=== PATIENT | female | born 1965 | race Caucasian/White ===

== ENCOUNTER 2024-08-16 11:19 | Emergency (ER) | payer OTHER, SELFPAY ==
[2024-08-16 11:20] VITALS: BP 140/107
--- NOTE | 2024-08-16 12:03 | ED.GENMED ---
History of Present Illness
<Savannah Hathc PA-C - Last Filed: 08/16/24 21:35>
General
Chief Complaint: Headache
Source: patient
Exam Limitations: none
Time Seen by Provider: 08/16/24 12:01
Nursing documentation reviewed up to this point in time: agreed with
History of Present Illness
History of Present Illness:
This is a 59-year-old female with a past history of GERD hyperlipidemia, asthma who presents emergency department today with concerns of right-sided headache and right sided eye pain/blurry vision for the past week. Patient states that she has no
prior history of headaches or problems with her eyes and does not wear any glasses at baseline. 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 She reports that she felt like she had something stuck in her eye but when she rinsed her eye out,
she noticed the blurry vision in her right eye was still present. She reports that she cannot read things from a distance that she normally would be able to. She reports that since the symptoms started earlier in the week, they have been
progressively getting worse. She denies any paresthesias in her upper or lower extremities, denies any facial pain or paresthesias. She also notes intermittent dizziness. She denies any trouble speaking or difficulty swallowing. She denies any
difficulties walking. She denies any syncopal episodes.She denies any trauma to the eye. She also is concerned about right upper quadrant abdominal pain she has been having for the past few weeks its gotten acutely worse the past few days and has
been associated with some nausea and 1 episode of vomiting. Of note, she did have a cholecystectomy around a year ago and feels like since then she has been having problems with persistent pain. She saw her primary care provider today for the
symptoms and they noted her blood pressure systolically to be in the 180s and so they sent her to the ER for further evaluation. Patient has no history of hypertension and is never required medication for her blood pressure in the past.
Past History
<Savannah Hatch PA-C - Last Filed: 08/16/24 21:35>
Past History
ED Past Medical History: Asthma
ED Past Surgical History: Gynecological (Ovarian cyst removed X2,)
Social History
Tobacco: Non-smoker
Alcohol: Occasional
Personal:
Living: with family
Review of Systems
<Savannah Hatch PA-C - Last Filed: 08/16/24 21:35>
Review of Systems
All Other Systems: ROS reviewed and negative except as documented in HPI and ROS
Phy Exam
<Savannah Hatch PA-C - Last Filed: 08/16/24 21:35>
Physical Exam
Physical Exam:
General: Patient is well appearing and in no acute distress; non-toxic
Skin: Warm and dry, no rashes or lesions
Head: Normocephalic, atraumatic, no tempora artery tenderness
Eyes: Sclera non-icteric. EOMs intact. PERRLA. Conjunctiva clear bilaterally. Right eye pressure 16, left eye pressure 14.
Cardiac: Regular rate and rhythm, no murmurs
Peripheral Vascular: No lower extremity swelling or edema
Pulm: Normal respiratory effort, no wheezes, rales, or rhonchi
Abdomen: RUQ tenderness to palpation with guarding, right CVA tenderness, no rebound tenderness
Neuro: CN II-XII intact, no focal neurologic deficits. Normal finger to nose, heel to thomas. Sensation intact bilaterally.
Psychiatric: Appropriate mood and affect.
Course
<Savannah Hatch PA-C - Last Filed: 08/16/24 21:35>
Orders/Labs/Results
Orders:
Orders
08/16/24 12:24
Electrocardiogram (*1) Urgent
Reason for Study: Palpitations
CT Head W/o Iv Contrast Urgent
Comment:
Reason For Exam: right sided headache, eye pain
08/16/24 12:25
EKG- Treatment ONCE
08/16/24 12:31
CRP [C-Reactive Protein] Urgent
Complete Blood Count/With Diff Urgent
Comprehensive Metabolic Panel Urgent
ESR [Erythrocyte Sed Rate] Urgent
HCG, Serum Qualitative Screen Urgent
Lipase Urgent
08/16/24 12:40
Test Result ONCE
08/16/24 12:42
US Abdomen Limited Urgent
Comment:
Reason For Exam: right upper quadrant pain
08/16/24 15:07
Visual Acuity- Treatment ONCE
Abnormal Lab Results
08/16/24
12:31
RBC 4.07 L 10^6/uL
(4.20-5.40)
MCH 31.2 H pg
(27.0-31.0)
MPV 10.7 H fL
(7.4-10.4)
Carbon Dioxide 33 H mmol/L
(22-30)
BUN 21 H mg/dl
(7-17)
Glucose 104 H mg/dl
(70-99)
08/16/24 12:31
08/16/24 12:31
Vital Signs
Initial and Last Documented VS:
Initial Vital Signs
Temp Pulse Resp BP Pulse Ox
97.8 F 66 16 140/107 98
08/16/24 11:20 08/16/24 11:20 08/16/24 11:20 08/16/24 11:20 08/16/24 11:20
Last Documented Vital Signs
Temp Pulse Resp BP Pulse Ox
97.8 F 78 20 134/85 98
08/16/24 11:20 08/16/24 16:00 08/16/24 16:00 08/16/24 16:00 08/16/24 16:00
<Marya Jones MD - Last Filed: 08/16/24 13:40>
Orders/Labs/Results
Orders:
Orders
08/16/24 12:24
Electrocardiogram (*1) Urgent
Reason for Study: Palpitations
CT Head W/o Iv Contrast Urgent
Comment:
Reason For Exam: right sided headache, eye pain
08/16/24 12:25
EKG- Treatment ONCE
08/16/24 12:31
CRP [C-Reactive Protein] Urgent
Complete Blood Count/With Diff Urgent
Comprehensive Metabolic Panel Urgent
ESR [Erythrocyte Sed Rate] Urgent
HCG, Serum Qualitative Screen Urgent
Lipase Urgent
08/16/24 12:40
Test Result ONCE
08/16/24 12:42
US Abdomen Limited Urgent
Comment:
Reason For Exam: right upper quadrant pain
08/16/24 15:07
Visual Acuity- Treatment ONCE
Abnormal Lab Results
08/16/24
12:31
RBC 4.07 L 10^6/uL
(4.20-5.40)
MCH 31.2 H pg
(27.0-31.0)
MPV 10.7 H fL
(7.4-10.4)
Carbon Dioxide 33 H mmol/L
(22-30)
BUN 21 H mg/dl
(7-17)
Glucose 104 H mg/dl
(70-99)
08/16/24 12:31
08/16/24 12:31
Vital Signs
Initial and Last Documented VS:
Initial Vital Signs
Temp Pulse Resp BP Pulse Ox
97.8 F 66 16 140/107 98
08/16/24 11:20 08/16/24 11:20 08/16/24 11:20 08/16/24 11:20 08/16/24 11:20
Last Documented Vital Signs
Temp Pulse Resp BP Pulse Ox
97.8 F 78 20 134/85 98
08/16/24 11:20 08/16/24 16:00 08/16/24 16:00 08/16/24 16:00 08/16/24 16:00
<Savannah Hatch PA-C - Last Filed: 08/16/24 21:35>
MDM/Problems Addressed
Differential Diagnosis Includes:
ddx include cluster headache, tension headache, migraine headache, idiopathic intracranial hypertension, intraparenchymal hemorrhage, nephrolithiasis, pancreatitis, GERD, gastritis, GCA
MDM/Problems Addressed:
59 y/o female with pmh of GERD, HLP presents to the ER today with concerns of right sided headache, eye pain, blurred vision that has been getting progressively worse over the past week. Also has associated periodic dizziness. On exam, she is well
appearing in no acute distress. Patient declining medication for pain and dizziness at this time. Her sclera are clear bilaterally. Her extraocular movements are intact. Her CT scan of the head is normal. CBC and CMP unremarkable. Patient's
visual acquity is 20/25 with both eyes open, and 20/100 in the right eye with the left eye covered. Reviewed case with Dr. Wallace job interviewer traveling missionary who reports that patient is appropriate for out patient follow up with her office, patient
states that she will call the office tomorrow.
Patient did drive here and states that the blurry vision does not impact her day to day activities and she feels safe to go home.
Chronic conditions affecting care:
GERD, HLP
<Savannah Hatch PA-C - Last Filed: 08/16/24 21:35>
*Pulse Oximetry
Patient hypoxic: no
*Critical Care Note
Total Time (30-74mins, 75-104mins- exclusive of procedures): Not Applicable
Data Reviewed
Review of Other/Old Records Reveals: Records (Reviewed previous ER physician documentation from 09/15/2018 patient seen for bruising of the toenail had normal x-ray patient discharge)
Source: patient and records
<Savannah Hatch PA-C - Last Filed: 08/16/24 21:35>
Patient Management
Escalation/DeEscalation of care consider admission/obs:
Admit not indicated pt stable for discharge
ED Attending Note
<Savannah Hatch PA-C - Last Filed: 08/16/24 21:35>
-
Portions of this chart may have been created with voice recognition software.� Occasional wrong word or��sound alike� substitutions may have occurred due to the inherent limitations of voice recognition software.
<Marya Jones MD - Last Filed: 08/16/24 13:40>
ED Attending Note
Patient seen and examined by attending physician: Yes
I performed the substantive portion of visit, reviewed & personally made and approve the management plan that is documented in note by myself or SURAJ.: Yes
ED Attending Note:
59-year-old female with a multitude of complaints that have been going on 'a while', at least a month. She describes a right-sided headache described as a 'dull ache', progressive, sometimes relieved with Motrin, not sudden onset or worst of life.
He also feels like her right periorbital area is swollen although not noted on exam and she has blurry vision. She denies double vision, amaurosis, chest pain. She denies change in speech or swallowing. She states she feels 'lightheaded' when she
gets up and down from a seated position. She also notes palpitations and right upper quadrant pain. Patient seen by family doctor referred to the emergency department based on her elevated blood pressure. On exam, patient is extremely
well-appearing, pupils equal round reactive to light, EOMI, no nystagmus, visual cadena intact, cranial nerves II through XII intact, [id number] normal, motor 5 and 5, sensory intact. Gait normal. No temporal artery tenderness to palpation.
Differential is broad, workup in progress.
Discharge Plan
Departure
Patient Disposition: Home (Routine Discharge)
Date of Disposition: 08/16/24
Time of Disposition: 16:47
Patient with high blood pressure during this ER visit?: Yes
Condition: Good
Discharge Problem:
Headache, Blurred vision, Abdominal pain
Instructions: Headache, Adult (DC), BLOOD PRESSURE
Prescriptions:
No Action
Omeprazole
1 tab PO DAILY
Patient Comments:
does not know how many mg
Sertraline
1 tab PO DAILY
Patient Comments:
does not know the dose but says it is a low dose
naproxen 500 MG tablet
500 mg PO BID Qty: 10 0RF
Rx Instructions:
Take with food.
tramadol 50 MG tablet
50 mg PO Q6HPRN PRN (Reason: pain) Qty: 20 0RF
Referrals:
Fab Miranda CRNP [Family Provider] -
Megan Wallace MD [Active] - Call in 1-3 days for appt
Activity Restrictions/Additional Instructions:
Please call your technical healthcare consultant/general surgeon, he will likely need an MRI of your abdomen for further evaluation of the liver lesion.
Please call Dr. Wallace's office tomorrow morning to schedule appointment for full opthalmic exam.
PLEASE RETURN TO EMERGENCY DEPARTMENT SHOULD YOU EXPERIENCE ACUTE WORSENING OF YOUR SYMPTOMS, CHEST PAIN, SHORTNESS OF BREATH, INABILITY TO TOLERATE ORAL INTAKE, NAUSEA OR VOMITING, FEVERS OR CHILLS, VISUAL LOSS, DOUBLE VISION, OR ANY OTHER SIGNS OR
SYMPTOMS WORRISOME TO YOU.
Interventions
Interventions:
*Risk Screen - Suicide Last Done: 08/16/24 13:56
*General Assessment Last Done: 08/16/24 13:00
*Neglect/Abuse Screening Last Done: 08/16/24 13:56
*ED COVID-19 Vaccine History Last Done: 08/16/24 13:56
*Nursing Disposition Last Done: 08/16/24 17:13
ED- Neurological Assessment Last Done: 08/16/24 15:00
Discharge Date and Time
Discharge Date/Time: 08/16/24 17:14
Print Language: SWAZI
[2024-08-16 12:51] LABS: % Basophils 0.7 % (0-2); % Eosinophils 3.5 % (0-6); % Immature Granulocytes 0.4 % (0-0.5); % Monocytes 8.7 % (1.7-9.3); % Neutrophils 63.7 % (42.2-75.2); Absolute Eosinophils 0.2 10^3/uL (0-0.7); Absolute Lymphocytes 1.2 10^3/uL (1.2-3.4); Absolute Monocytes 0.5 10^3/uL (0.1-0.6); Absolute Neutrophils 3.4 10^3/uL (1.4-6.5); Hematocrit 38.5 % (37.0-47.0); Hemoglobin 12.7 g/dL (12.0-16.0); Mean Corpuscular Hgb 31.2 pg (27.0-31.0); Mean Corpuscular Volume 94.6 fL (81.0-99.0); Mean Platelet Volume 10.7 fL (7.4-10.4); Nucleated Red Blood Cells % 0 %; Platelet Count 185 10^3/uL (130-400); Red Blood Cell Count 4.07 10^6/uL (4.20-5.40); Red Cell Dist. Width 13.2 % (11.5-14.5); White Blood Cell Count 5.4 10^3/uL (4.8-10.8)
[2024-08-16 12:59] LABS: ALT (SGPT) 22 U/L (0-35); AST (SGOT) 21 U/L (14-36); Albumin 4.2 g/dl (3.5-5.0); Alkaline Phosphatase 96 U/L (38-126); Blood Urea Nitrogen 21 mg/dl (7-17); Calcium 9.7 mg/dl (8.4-10.2); Carbon Dioxide 33 mmol/L (22-30); Chloride 102 mmol/L (98-107); Glucose 104 mg/dl (70-99); Lipase 135 U/L (23-300); Potassium 4.3 mmol/L (3.5-5.1); Sodium 138 mmol/L (135-145); Total Bilirubin 0.5 mg/dl (0.2-1.3); eGFR > 60.00
[2024-08-16 13:02] VITALS: BP 123/64
[2024-08-16 13:14] LABS: HCG, Serum Qualitative Screen Negative
[2024-08-16 13:45] LABS: Erythrocyte Sed Rate 3 mm/hour (0-20)
[2024-08-16 16:00] VITALS: BP 134/85
== END 2024-08-16 17:14 | disposition home or self-care (01) ==
LOC: EMR 11:19
PROVIDERS: Physician Assistant; EMERGENCY PHYSICIAN Emergency Medicine; FAMILY PHYSICIAN Nurse Practitioner Family
DX: R51.9 Headache, unspecified (principal); H53.8 Other visual disturbances; R03.0 Elevated blood-pressure reading, without diagnosis of hypertension; R10.11 Right upper quadrant pain; E78.5 Hyperlipidemia, unspecified; J45.909 Unspecified asthma, uncomplicated; K21.9 Gastro-esophageal reflux disease without esophagitis
CPT/HCPCS: 99284; 70450; 76705; 80053; 83690; 84703; 85025; 85652; 86140; 93005

== ENCOUNTER 2024-10-18 18:04 | Emergency (ER) | payer OTHER, SELFPAY ==
[2024-10-18 18:08] VITALS: BP 185/107
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
[2024-10-18 19:42] VITALS: BP 141/72
[2024-10-18] MEDS: TYLENOL 650 MG PO (19:50)
== END 2024-10-18 19:55 | disposition home or self-care (01) ==
LOC: EMR 18:04
PROVIDERS: EMERGENCY PHYSICIAN Emergency Medicine
DX: S09.90XA Unspecified injury of head, initial encounter (principal); Y04.0XXA Assault by unarmed brawl or fight, initial encounter; J45.909 Unspecified asthma, uncomplicated
CPT/HCPCS: 99284; 70450